=== PATIENT | male | born 1995 | race African-American/Black ===

== ENCOUNTER 2017-04-27 09:38 | Emergency (ER) | payer SELFPAY ==
[~2017-04-27] VITALS: Ht 182.9 cm; Wt 80.0 kg
[2017-04-27 09:39] VITALS: BP 131/79
== END 2017-04-27 10:05 | disposition left against medical advice (07) ==
LOC: ER 09:53
DX: R56.9 Unspecified convulsions (principal); Z53.21 Procedure and treatment not carried out due to patient leaving prior to being seen by health care provider

== ENCOUNTER 2024-10-19 10:47 | Emergency (ER) | payer MEDICAID ==
[~2024-10-19] VITALS: Ht 182.9 cm; Wt 85.0 kg
[2024-10-19 10:52] VITALS: O2SAT 99
[2024-10-19 11:15] VITALS: TEMP 36.5
[2024-10-19] MEDS: LEVETIRACETAM 1000MG PREMIX 100 ML IV ONE (11:38)
[2024-10-19 11:49] LABS: BASOPHILS % 0.4 % (0.0-2.0); HEMATOCRIT. 44.3 % (42.0-52.0); HEMOGLOBIN. 14.5 g/dL (14.0-18.0); MEAN CORPUSCULAR HEMOGLOBIN 28.8 pg (28.0-32.0); MEAN CORPUSCULAR HGB CONC 32.7 g/dL (31.0-37.0); MEAN CORPUSCULAR VOLUME 88.1 fL (80.0-94.0); MEAN PLATELET VOLUME 8.2 fl (7.4-10.4); MONOCYTES % 7.3 % (2.0-8.0); NEUTROPHILS % 77.3 % (40.0-76.0); PLATELET 242 x1000/uL (130-400); RED BLOOD CELL COUNT 5.03 mill/uL (4.7-6.1); RED CELL DISTRIBUTION WIDTH 13.9 % (11.6-14.6); WHITE BLOOD COUNT 9.5 x1000/uL (4.5-11.0)
[2024-10-19 11:57] LABS: CHLORIDE 107 mEq/L (98-107); POTASSIUM 4.5 mEq/L (3.5-5.1); SODIUM 140 mEq/L (136-145)
[2024-10-19 11:58] LABS: CALCIUM 9.4 mg/dL (8.7-10.4); CARBON DIOXIDE 20 mEq/L (21-32)
[2024-10-19 12:02] LABS: CREATININE 1.1 mg/dL (0.6-1.3)
[2024-10-19 12:03] LABS: ETHANOL BLOOD < 10 mg/dL (<10); GLUCOSE 85 mg/dL (70-105); UREA NITROGEN BLOOD 15 mg/dL (9-23)
[2024-10-19 12:24] VITALS: BP 122/72; PULSE 63; RESP 16; O2SAT 100
[2024-10-19] MEDS: ACETAMINOPHEN 325MG TABLET PO ONE (12:27)
[2024-10-19] MEDS: ONDANSETRON HCL 4MG/2ML INJ IV ONE (12:28)
== END 2024-10-19 12:28 | disposition left against medical advice (07) ==
LOC: ER 10:47 → EDBEDREQ 10:59 → CANBEDREQ 12:28 → ER 12:28
DX: R56.9 Unspecified convulsions (principal)
CPT/HCPCS: 80048; 80320; 80165; 85025; 36415; 96365; 99284; J1953; G0480